=== PATIENT | female | born 1970 | race Caucasian/White ===

== ENCOUNTER 2017-03-04 05:11 | Inpatient (IN) | payer MEDICAID, SELFPAY ==
[~2017-03-04] VITALS: Ht 162.6 cm; Wt 76.6 kg
[~2017-03-04 05:11] MED LIST: NOCURR
[2017-03-04] MEDS ORDERED: LURA20TA PO (05:47)
[2017-03-04] MEDS ORDERED: RISP.5 PO (05:47)
[2017-03-04] MEDS ORDERED: HALOPERIDOL 5 MG TABLET PO PRN ×2 (08:00→08:30)
[2017-03-04] MEDS ORDERED: LORazepam 2 MG TABLET PO PRN ×2 (08:00→08:30)
[2017-03-04] MEDS ORDERED: ZOLPIDEM TARTRATE 10 MG TABLET PO PRN ×2 (08:00→08:30)
[2017-03-04 08:02] LABS: ANION GAP 8 mmol/L (8-16); CALCIUM, TOTAL 8.8 mg/dL (8.8-10.5); CARBON DIOXIDE 27 mmol/L (22-29); CHLORIDE 101 mmol/L (98-107); CREATININE 0.76 mg/dL (0.60-1.30); GLOMERULAR FILTR. RATE CALC > 60 mL/min (>60); GLUCOSE,RANDOM 107 mg/dL (70-110); POTASSIUM 4.4 mmol/L (3.5-5.1); SODIUM SERUM 136 mmol/L (136-145); UREA NITROGEN, BLOOD 18 mg/dL (7-18)
[2017-03-04 08:03] LABS: BASOPHILS # (AUTO) 0.08 K/uL (0.00-0.20); EOSINOPHILS # (AUTO) 0.15 K/uL (0.00-0.70); EOSINOPHILS % (AUTO) 1.77 % (1.0-6.0); HEMOGLOBIN 12.2 g/dL (12.0-16.0); LYMPHOCYTES # (AUTO) 1.7 K/uL (1.0-4.8); MEAN CORPUSCULAR HEMOGLOBIN 28.1 pg (26.0-34.0); MEAN CORPUSCULAR HGB CONC 33.1 G/dL (31.0-37.0); MEAN CORPUSCULAR VOLUME 85 fL (80-100); MONOCYTES # (AUTO) 0.6 K/uL (0.1-1.0); MONOCYTES % (AUTO) 7.3 % (2.0-9.0); NEUTROPHILS # (AUTO) 5.7 K/uL (1.8-7.7); NEUTROPHILS % (AUTO) 68.9 % (40.0-70.0); PLATELET COUNT (AUTO) 347 K/uL (150-450); RED BLOOD CELL COUNT(AUTO) 4.36 MIL/uL (4.00-5.20); RED CELL DISTRIBUTION WIDTH 15.6 % (11.5-14.5)
[2017-03-04 08:04] LABS: AMPHET/METH SCREEN,URINE POSITIVE (NEGATIVE); BARBITURATE SCREEN, URINE NEGATIVE (NEGATIVE); BENZODIAZEPINES SCREEN,URINE NEGATIVE (NEGATIVE); CANNABINOID SCREEN,URINE NEGATIVE (NEGATIVE); COCAINE SCREEN,URINE NEGATIVE (NEGATIVE); METHADONE SCREEN, URINE NEGATIVE (NEGATIVE); OPIATE SCREEN,URINE NEGATIVE (NEGATIVE)
[2017-03-04 08:06] LABS: PHENCYCLIDINE SCREEN,URINE NEGATIVE (NEGATIVE)
[2017-03-04 08:08] LABS: ALANINE AMINOTRANSFERASE 28 U/L (12-78); ALBUMIN 3.7 g/dL (3.4-5.0); ALKALINE PHOSPHATASE 125 U/L (46-116); ASPARTATE AMINOTRANSFERASE 22 U/L (15-37); BILIRUBIN,TOTAL 0.4 mg/dL (0.1-1.0)
[2017-03-04 12:36] VITALS: BP 142/75
[2017-03-04] MEDS: SERTRALINE HCL 50 MG TABLET PO SCH (13:17)
[2017-03-04] MEDS: RisperiDONE 1 MG TABLET PO SCH ×2 (13:17→18:04)
[2017-03-04] MEDS ORDERED: ACETAMINOPHEN 325 MG TABLET PO PRN (13:45)
[2017-03-04] MEDS ORDERED: IBUPROFEN 400 MG TABLET PO PRN (13:45)
[2017-03-05] MEDS: RisperiDONE 1 MG TABLET PO SCH ×2 (10:42→16:51)
[2017-03-05] MEDS: SERTRALINE HCL 50 MG TABLET PO SCH (10:42)
[2017-03-05 14:27] VITALS: BP 130/75
[2017-03-05] MEDS ORDERED: ACETAMINOPHEN 325 MG TABLET PO PRN (17:30)
[2017-03-06 08:15] VITALS: BP 142/88
[2017-03-06 08:32] LABS: CHOL/HDL RATIO 2.4 (3.9-5.7)
[2017-03-06] MEDS: AmLODIPine BESYLATE 2.5 MG TABLET PO SCH (08:56)
[2017-03-06 08:57] LABS: THYROID STIMULATING HORMONE 1.86 uIU/mL (0.36-3.74)
[2017-03-06] MEDS: RisperiDONE 1 MG TABLET PO SCH ×2 (08:57→17:00)
[2017-03-06] MEDS: SERTRALINE HCL 50 MG TABLET PO SCH (08:57)
[2017-03-06] MEDS: IBUPROFEN 400 MG TABLET PO PRN ×2 (10:45→19:59)
[2017-03-06 10:47] VITALS: BP 138/77
[2017-03-06 10:50] VITALS: BP 129/95
[2017-03-06 19:54] VITALS: BP 112/76
[2017-03-07] MEDS: IBUPROFEN 400 MG TABLET PO PRN (07:09)
[2017-03-07 08:09] VITALS: BP 133/90
[2017-03-07] MEDS: AmLODIPine BESYLATE 2.5 MG TABLET PO SCH (09:12)
[2017-03-07] MEDS: SERTRALINE HCL 50 MG TABLET PO SCH (09:12)
[2017-03-07] MEDS: RisperiDONE 1 MG TABLET PO SCH ×2 (09:12→16:10)
[2017-03-07] MEDS: DiphenhydrAMINE HCL 25 MG CAPSULE PO SCH ×2 (09:12→16:10)
[2017-03-07] MEDS ORDERED: AMLO2.5T PO (15:00)
[2017-03-07] MEDS ORDERED: SERT50TA12 PO (15:00)
[2017-03-07] MEDS ORDERED: DIPH25 PO (15:00)
== END 2017-03-07 17:15 | disposition home or self-care (01) | DRG 750 ==
LOC: EMS 05:13 → 3EI 08:42
PROVIDERS: ADMIT Psychiatry & Neurology Psychiatry; ATTEND Psychiatry & Neurology Child & Adolescent Psychiatry
DX: F25.1 Schizoaffective disorder, depressive type (principal); R45.851 Suicidal ideations; F29 Unspecified psychosis not due to a substance or known physiological condition; F32.9 Major depressive disorder, single episode, unspecified; I10 Essential (primary) hypertension; F41.9 Anxiety disorder, unspecified; F10.10 Alcohol abuse, uncomplicated; F15.10 Other stimulant abuse, uncomplicated; Z71.41 Alcohol abuse counseling and surveillance of alcoholic; Z79.899 Other long term (current) drug therapy; Z71.51 Drug abuse counseling and surveillance of drug abuser
CPT/HCPCS: 83036; 84443; 99285; G0480

== ENCOUNTER 2018-06-23 17:29 | Emergency (ER) | payer MEDICAID, OTHER, SELFPAY ==
[~2018-06-23] VITALS: Ht 165.1 cm; Wt 72.7 kg
[~2018-06-23 17:29] MED LIST changes: +AMLO2.5T4 PO; +DIPH25 PO; -NOCURR; +RISP.5 PO; +SERT50TA12 PO
[2018-06-23] MEDS ORDERED: LURA20TA PO (17:50)
[2018-06-23] MEDS ORDERED: VALB40CA PO (17:50)
[2018-06-23] MEDS ORDERED: BENZ0.5T44 PO (17:50)
[2018-06-23] MEDS ORDERED: LISI-661 PO (17:50)
[2018-06-23 18:11] VITALS: BP 143/91
[2018-06-23] MEDS ORDERED: HydrOXYzine PAMOATE 50 MG CAPSULE PO ONE (18:30)
[2018-06-23] MEDS ORDERED: BENZTROPINE MESYLATE 2 MG TABLET PO ONE (18:30)
[2018-06-23] MEDS ORDERED: PB/HYOSCY/ATR/SCOP/LIDO/MAALOX 55 ML BOTTLE PO ONE (19:00)
== END 2018-06-23 19:28 | disposition home or self-care (01) ==
LOC: EMS 17:31
DX: F41.9 Anxiety disorder, unspecified (principal); G25.9 Extrapyramidal and movement disorder, unspecified; F32.9 Major depressive disorder, single episode, unspecified; Z79.899 Other long term (current) drug therapy

== ENCOUNTER 2020-05-02 13:56 | Inpatient (IN) | payer MEDICAID, OTHER ==
[~2020-05-02] VITALS: Ht 165.1 cm; Wt 60.0 kg
[~2020-05-02 13:56] MED LIST changes: -AMLO2.5T4 PO; +BENZ1TAB10 PO; -DIPH25 PO; +LISI-893 PO; +LURA40TA2 PO; -RISP.5 PO; +SERT-158 PO; -SERT50TA12 PO; +TRAZ-257 PO
[2020-05-02] MEDS ORDERED: DiphenhydrAMINE HCL 25 MG/10 ML ELIXIR UDCUP PO ONE (15:00)
[2020-05-02] MEDS ORDERED: MAG HYDROX/AL HYDROX/SIMETH ES 30 ML SUSPENSION UDCUP PO ONE (15:00)
[2020-05-02 15:35] LABS: BASOPHILS % (AUTO) 0.7 % (0.0-2.0); EOSINOPHILS % (AUTO) 3.1 % (1.0-6.0); HEMATOCRIT 40.7 % (36-46); HEMOGLOBIN 13.5 g/dL (12.0-16.0); LYMPHOCYTES # (AUTO) 1.3 K/uL (1.0-4.8); LYMPHOCYTES % (AUTO) 14.5 % (22.0-44.0); MEAN CORPUSCULAR HEMOGLOBIN 30.9 pg (26.0-34.0); MEAN CORPUSCULAR HGB CONC 33.2 G/dL (31.0-37.0); MEAN CORPUSCULAR VOLUME 93 fL (80-100); MONOCYTES % (AUTO) 10.5 % (2.0-9.0); NEUTROPHILS # (AUTO) 6.5 K/uL (1.8-7.7); NEUTROPHILS % (AUTO) 71.2 % (40.0-70.0); PLATELET COUNT (AUTO) 365 K/uL (150-450); RED BLOOD CELL COUNT(AUTO) 4.38 MIL/uL (4.00-5.20); RED CELL DISTRIBUTION WIDTH 15.7 % (11.5-14.5)
[2020-05-02] MEDS ORDERED: ZOLPIDEM TARTRATE 10 MG TABLET PO PRN (15:45)
[2020-05-02] MEDS ORDERED: PROMETHAZINE HCL 25 MG TABLET PO PRN (15:45)
[2020-05-02] MEDS ORDERED: LORazepam 2 MG TABLET PO PRN (15:45)
[2020-05-02] MEDS ORDERED: TUBERCULIN, PURIFIED PROTEIN DERIVATIVE 5 TU/0.1 ML SYRINGE ID ONE (15:45)
[2020-05-02] MEDS ORDERED: OLANZapine 5 MG RAPDIS TABLET PO PRN (15:45)
[2020-05-02] MEDS ORDERED: MAGNESIUM HYDROXIDE SUSPENSION 30 ML UDCUP PO PRN (15:45)
[2020-05-02] MEDS ORDERED: LOPERAMIDE HCL 2 MG CAPSULE PO PRN (15:45)
[2020-05-02] MEDS ORDERED: ACETAMINOPHEN 325 MG TABLET PO PRN (15:45)
[2020-05-02] MEDS ORDERED: MAG HYDROX/AL HYDROX/SIMETH ES 30 ML SUSPENSION UDCUP PO PRN (15:45)
[2020-05-02] MEDS ORDERED: GuaiFENesin/D-METHORPHAN [SUGAR-FREE] 200-20MG/10 ML SYRUP UDCUP PO PRN (15:45)
[2020-05-02] MEDS ORDERED: HydrOXYzine PAMOATE 50 MG CAPSULE PO PRN (15:45)
[2020-05-02] MEDS ORDERED: LURASIDONE HCL 20 MG TABLET PO PRN (15:45)
[2020-05-02 15:56] LABS: ALANINE AMINOTRANSFERASE 37 U/L (12-78); ALBUMIN 3.6 g/dL (3.4-5.0); ALKALINE PHOSPHATASE 133 U/L (46-116); ANION GAP 15 mmol/L (8-16); ASPARTATE AMINOTRANSFERASE 30 U/L (15-37); BILIRUBIN,TOTAL 0.3 mg/dL (0.1-1.0); CALCIUM, TOTAL 9.5 mg/dL (8.8-10.5); CARBON DIOXIDE 20 mmol/L (22-29); CHLORIDE 103 mmol/L (98-107); CREATININE 0.87 mg/dL (0.60-1.30); GLOMERULAR FILTR. RATE CALC > 60 mL/min (>60); GLUCOSE,RANDOM 102 mg/dL (70-110); SODIUM SERUM 138 mmol/L (136-145); TOTAL PROTEIN, SERUM 7.7 g/dL (6.4-8.2); UREA NITROGEN, BLOOD 22 mg/dL (7-18)
[2020-05-02] MEDS ORDERED: LORazepam 2 MG TABLET PO ONE (16:00)
[2020-05-02] MEDS ORDERED: HALOPERIDOL 5 MG TABLET PO ONE (16:00)
[2020-05-02 16:03] LABS: POTASSIUM 2.7 mmol/L (3.5-5.1)
[2020-05-02] MEDS ORDERED: BACITRACIN 0.9 GM PACKET OINTMENT TP ONE (16:15)
[2020-05-02] MEDS ORDERED: POTASSIUM CHLORIDE 10% 40 MEQ/30 ML LIQUID UDCUP PO ONE ×2 (16:15→16:45)
[2020-05-02 16:58] LABS: COVID AG,FIA SOURCE NASOPHARYNGEAL
[2020-05-02] MEDS ORDERED: LURASIDONE HCL 40 MG TABLET PO SCH (17:30)
[2020-05-02 18:57] LABS: AMPHET/METH SCREEN,URINE POSITIVE (NEGATIVE); BARBITURATE SCREEN, URINE NEGATIVE (NEGATIVE); BENZODIAZEPINES SCREEN,URINE NEGATIVE (NEGATIVE); CANNABINOID SCREEN,URINE NEGATIVE (NEGATIVE); COCAINE SCREEN,URINE NEGATIVE (NEGATIVE); METHADONE SCREEN, URINE NEGATIVE (NEGATIVE); OPIATE SCREEN,URINE NEGATIVE (NEGATIVE)
[2020-05-02 18:58] LABS: PHENCYCLIDINE SCREEN,URINE NEGATIVE (NEGATIVE)
[2020-05-03 00:27] VITALS: BP 110/77
[2020-05-03] MEDS ORDERED: INFLUENZA VIRUS VACCINE QVS 2020-21 (6MO+)/PF 60 MCG/0.5 ML SYRINGE IM ONE (01:30)
[2020-05-03] MEDS ORDERED: PNEUMOCOCCAL VACCINE POLYVALENT 0.5 ML VIAL [PPSV23] IM ONE (01:30)
[2020-05-03] MEDS: SERTRALINE HCL 50 MG TABLET PO SCH (09:59)
[2020-05-03] MEDS: OMEGA-3/DHA/EPA/FISH OIL 1,000 MG CAPSULE PO SCH (09:59)
[2020-05-03] MEDS: MULTIVITAMINS WITH MINERALS, THERAPEUTIC TABLET PO SCH (09:59)
[2020-05-03] MEDS: FOLIC ACID 1 MG TABLET PO SCH (10:00)
[2020-05-03] MEDS: NALTREXONE HCL 50 MG TABLET PO SCH (10:00)
[2020-05-03] MEDS: THIAMINE 100 MG TABLET PO SCH ×3 (10:00→16:55)
[2020-05-03] MEDS ORDERED: PALIPERIDONE PALMITATE 234 MG/1.5 ML SYRINGE IM ONE (12:30)
[2020-05-03] MEDS ORDERED: PALIPERIDONE 1.5 MG ER TABLET PO PRN (12:30)
[2020-05-03 16:53] VITALS: BP 100/65
[2020-05-03] MEDS ORDERED: POTASSIUM CHLORIDE 20 MEQ ER TABLET PO ONE (20:45)
[2020-05-03] MEDS: TraZODone HCL 100 MG TABLET PO SCH ×2 (21:00→21:02)
[2020-05-03] MEDS ORDERED: PALIPERIDONE 3 MG ER TABLET PO SCH (21:00)
[2020-05-03] MEDS: MELATONIN 5 MG TABLET PO SCH ×2 (21:00→21:02)
[2020-05-03] MEDS: DIVALPROEX SODIUM 500 MG ER TABLET PO SCH (21:02)
[2020-05-04 00:19] VITALS: BP 112/73
[2020-05-04 08:21] VITALS: BP 129/68
[2020-05-04] MEDS: SERTRALINE HCL 50 MG TABLET PO SCH (09:14)
[2020-05-04] MEDS: THIAMINE 100 MG TABLET PO SCH ×2 (09:14→17:01)
[2020-05-04] MEDS: MULTIVITAMINS WITH MINERALS, THERAPEUTIC TABLET PO SCH (09:14)
[2020-05-04] MEDS: OMEGA-3/DHA/EPA/FISH OIL 1,000 MG CAPSULE PO SCH (09:14)
[2020-05-04] MEDS: FOLIC ACID 1 MG TABLET PO SCH (09:14)
[2020-05-04] MEDS: LISINOPRIL 10 MG TABLET PO SCH (09:14)
[2020-05-04] MEDS: NALTREXONE HCL 50 MG TABLET PO SCH (09:14)
[2020-05-04] MEDS ORDERED: IBUPROFEN 600 MG TABLET PO PRN (10:45)
[2020-05-04] MEDS: AMOX TR/POT CLAV 875 MG/125 MG TABLET PO SCH (17:00)
[2020-05-04 17:49] VITALS: BP 90/60
[2020-05-04] MEDS: DIVALPROEX SODIUM 500 MG ER TABLET PO SCH (20:46)
[2020-05-04] MEDS: MELATONIN 5 MG TABLET PO SCH (20:49)
[2020-05-04] MEDS: TraZODone HCL 100 MG TABLET PO SCH (21:26)
[2020-05-05 01:26] VITALS: BP 100/63
[2020-05-05] MEDS ORDERED: LURASIDONE HCL 40 MG TABLET PO SCH (07:00)
[2020-05-05 08:17] VITALS: BP 116/74
[2020-05-05] MEDS: FOLIC ACID 1 MG TABLET PO SCH (08:47)
[2020-05-05] MEDS: SERTRALINE HCL 50 MG TABLET PO SCH (08:47)
[2020-05-05] MEDS: THIAMINE 100 MG TABLET PO SCH ×2 (08:47→16:11)
[2020-05-05] MEDS: AMOX TR/POT CLAV 875 MG/125 MG TABLET PO SCH ×2 (08:47→16:11)
[2020-05-05] MEDS: LISINOPRIL 10 MG TABLET PO SCH (08:47)
[2020-05-05] MEDS: MULTIVITAMINS WITH MINERALS, THERAPEUTIC TABLET PO SCH (08:47)
[2020-05-05] MEDS: OMEGA-3/DHA/EPA/FISH OIL 1,000 MG CAPSULE PO SCH (08:47)
[2020-05-05] MEDS: NALTREXONE HCL 50 MG TABLET PO SCH (08:47)
[2020-05-05 08:48] LABS: HEMOGLOBIN A1C 5.1 % (3.8-5.6)
[2020-05-05 08:55] LABS: ALANINE AMINOTRANSFERASE 24 U/L (12-78); ALBUMIN 2.7 g/dL (3.4-5.0); ALKALINE PHOSPHATASE 100 U/L (46-116); ANION GAP 8 mmol/L (8-16); ASPARTATE AMINOTRANSFERASE 14 U/L (15-37); BILIRUBIN,TOTAL 0.2 mg/dL (0.1-1.0); CALCIUM, TOTAL 8.9 mg/dL (8.8-10.5); CARBON DIOXIDE 26 mmol/L (22-29); CHLORIDE 106 mmol/L (98-107); CREATININE 0.53 mg/dL (0.60-1.30); GLOMERULAR FILTR. RATE CALC > 60 mL/min (>60); GLUCOSE,RANDOM 91 mg/dL (70-110); SODIUM SERUM 140 mmol/L (136-145); TOTAL PROTEIN, SERUM 6.5 g/dL (6.4-8.2); UREA NITROGEN, BLOOD 18 mg/dL (7-18)
[2020-05-05 09:09] LABS: CHOL/HDL RATIO 2.2 (3.9-5.7); FREE T4 (FREE THYROXINE) 1.33 ng/dL (0.76-1.46); THYROID STIMULATING HORMONE 0.55 uIU/mL (0.36-3.74)
[2020-05-05] MEDS ORDERED: LURA40TA2 PO (14:40)
[2020-05-05] MEDS ORDERED: MELA5TAB3 PO (14:40)
[2020-05-05] MEDS ORDERED: DIVA-80 PO (14:40)
[2020-05-05] MEDS ORDERED: TRAZ-257 PO (14:40)
[2020-05-05] MEDS ORDERED: SERT-439 PO (14:40)
[2020-05-05] MEDS ORDERED: OMEG-135 PO (14:41)
[2020-05-05] MEDS ORDERED: NALT50TA PO (14:41)
[2020-05-05] MEDS ORDERED: AMOX1TAB16 PO (15:42)
[2020-05-05] MEDS ORDERED: LISI-893 PO (15:45)
[2020-05-05 16:39] VITALS: BP 97/60
[2020-05-07] MEDS ORDERED: PALIPERIDONE PALMITATE 156 MG/ML SYRINGE IM ONE (09:00)
== END 2020-05-05 17:05 | disposition home or self-care (01) | DRG 750 ==
LOC: EMS 15:06 → B3A 16:00 → UNDOADMIN 23:06
PROVIDERS: ADMIT Psychiatry & Neurology Psychiatry; ATTEND Psychiatry & Neurology Psychiatry
DX: F20.0 Paranoid schizophrenia (principal); F19.10 Other psychoactive substance abuse, uncomplicated; F10.20 Alcohol dependence, uncomplicated; I10 Essential (primary) hypertension; F17.200 Nicotine dependence, unspecified, uncomplicated; J44.9 Chronic obstructive pulmonary disease, unspecified; F15.90 Other stimulant use, unspecified, uncomplicated; Z88.8 Allergy status to other drugs, medicaments and biological substances; F12.90 Cannabis use, unspecified, uncomplicated; E87.6 Hypokalemia; Z91.19 Patient's noncompliance with other medical treatment and regimen; Z91.14 Patient's other noncompliance with medication regimen; F41.9 Anxiety disorder, unspecified; F32.9 Major depressive disorder, single episode, unspecified; Z20.822 Contact with and (suspected) exposure to COVID-19; Z28.21 Immunization not carried out because of patient refusal
CPT/HCPCS: 83036; 84132; 84439; 84443; 86592; 87426; 99285; A9575; G0480

== ENCOUNTER 2021-01-04 20:28 | Inpatient (IN) | payer MEDICAID ==
[~2021-01-04] VITALS: Ht 162.6 cm; Wt 57.8 kg
[~2021-01-04 20:28] MED LIST changes: +AMOX1TAB16 PO; -BENZ1TAB10 PO; +DIVA-80 PO; +MELA5TAB40 PO; +NALT50TA PO; +OMEG-135 PO; -SERT-158 PO; +SERT-439 PO
[2021-01-04] MEDS ORDERED: HALOPERIDOL LACTATE 5 MG/ML VIAL IM ONE (22:00)
[2021-01-04] MEDS ORDERED: LORazepam 2 MG/ML VIAL IM ONE (22:00)
[2021-01-04] MEDS ORDERED: DiphenhydrAMINE HCL 50 MG/ML VIAL IM ONE (22:00)
[2021-01-04 22:25] LABS: BASOPHILS % (AUTO) 1.1 % (0.0-2.0); EOSINOPHILS % (AUTO) 4.4 % (1.0-6.0); HEMATOCRIT 37.1 % (36-46); HEMOGLOBIN 12.2 g/dL (12.0-16.0); LYMPHOCYTES # (AUTO) 1.8 K/uL (1.0-4.8); LYMPHOCYTES % (AUTO) 23.1 % (22.0-44.0); MEAN CORPUSCULAR HEMOGLOBIN 29.9 pg (26.0-34.0); MEAN CORPUSCULAR HGB CONC 32.8 G/dL (31.0-37.0); MEAN CORPUSCULAR VOLUME 91 fL (80-100); MONOCYTES # (AUTO) 0.9 K/uL (0.1-1.0); NEUTROPHILS # (AUTO) 4.7 K/uL (1.8-7.7); NEUTROPHILS % (AUTO) 59.4 % (40.0-70.0); PLATELET COUNT (AUTO) 356 K/uL (150-450); RED BLOOD CELL COUNT(AUTO) 4.07 MIL/uL (4.00-5.20); RED CELL DISTRIBUTION WIDTH 14.1 % (11.5-14.5)
[2021-01-04 22:38] LABS: ANION GAP 8 mmol/L (8-16); CARBON DIOXIDE 26 mmol/L (22-29); CHLORIDE 108 mmol/L (98-107); CREATININE 0.62 mg/dL (0.60-1.30); GLOMERULAR FILTR. RATE CALC > 60 mL/min (>60); GLUCOSE,RANDOM 88 mg/dL (70-110); POTASSIUM 3.8 mmol/L (3.5-5.1); SODIUM SERUM 142 mmol/L (136-145); UREA NITROGEN, BLOOD 19 mg/dL (7-18)
[2021-01-04 22:43] LABS: ALANINE AMINOTRANSFERASE 19 U/L (12-78); ALBUMIN 3.5 g/dL (3.4-5.0); ALKALINE PHOSPHATASE 142 U/L (46-116); ASPARTATE AMINOTRANSFERASE 20 U/L (15-37); BILIRUBIN,TOTAL 0.4 mg/dL (0.1-1.0); TOTAL PROTEIN, SERUM 7.2 g/dL (6.4-8.2)
[2021-01-04 22:47] LABS: COVID AG,FIA SOURCE NASOPHARYNGEAL
[2021-01-05 03:29] VITALS: BP 140/78
[2021-01-05 08:39] VITALS: BP 112/70
[2021-01-05] MEDS ORDERED: PETROLATUM,WHITE 28 GM JELLY TP PRN (11:00)
[2021-01-05] MEDS ORDERED: ONDANSETRON HCL 4 MG TABLET PO PRN (11:00)
[2021-01-05] MEDS ORDERED: CloNIDine HCL 0.1 MG TABLET PO PRN (11:00)
[2021-01-05] MEDS ORDERED: LOPERAMIDE HCL 2 MG CAPSULE PO PRN (11:00)
[2021-01-05] MEDS ORDERED: BENZOCAINE/MENTHOL LOZENGE PO PRN (11:00)
[2021-01-05] MEDS ORDERED: DOCUSATE SODIUM 100 MG CAPSULE PO PRN (11:00)
[2021-01-05] MEDS ORDERED: MAGNESIUM HYDROXIDE SUSPENSION 30 ML UDCUP PO PRN (11:00)
[2021-01-05] MEDS ORDERED: BACITRACIN 28 GM OINTMENT TP PRN (11:00)
[2021-01-05] MEDS: DIVALPROEX SODIUM 500 MG DR TABLET PO SCH ×2 (11:02→16:23)
[2021-01-05] MEDS: RisperiDONE 1 MG TABLET PO SCH ×2 (11:05→16:23)
[2021-01-05] MEDS: LORazepam 2 MG TABLET PO PRN ×2 (11:07→16:23)
[2021-01-05] MEDS ORDERED: PNEUMOCOCCAL VACCINE POLYVALENT 0.5 ML VIAL [PPSV23] IM. ONE (16:30)
[2021-01-05] MEDS ORDERED: INFLUENZA VIRUS VACCINE QVS 2021-22 (6MO+)/PF 60 MCG/0.5 ML SYRINGE IM. ONE (16:30)
[2021-01-05 16:33] VITALS: BP 130/67
[2021-01-06 01:21] VITALS: BP 128/68
[2021-01-06 08:32] VITALS: BP 126/74
[2021-01-06 08:37] LABS: CHOL/HDL RATIO 1.9 (3.9-5.7)
[2021-01-06] MEDS: OMEGA-3/DHA/EPA/FISH OIL 1,000 MG CAPSULE PO SCH (08:52)
[2021-01-06] MEDS: LISINOPRIL 10 MG TABLET PO SCH (08:52)
[2021-01-06] MEDS: MULTIVITAMINS WITH MINERALS, THERAPEUTIC TABLET PO SCH (08:52)
[2021-01-06] MEDS: RisperiDONE 1 MG TABLET PO SCH ×2 (08:52→17:00)
[2021-01-06] MEDS: DIVALPROEX SODIUM 500 MG DR TABLET PO SCH ×2 (08:52→16:27)
[2021-01-06] MEDS: LORazepam 2 MG TABLET PO PRN ×2 (09:06→16:56)
[2021-01-06 16:31] VITALS: BP 98/67
[2021-01-06 16:55] VITALS: BP 114/71
[2021-01-06] MEDS: LURASIDONE HCL 80 MG TABLET PO SCH (21:15)
[2021-01-07 00:50] VITALS: BP 110/68
[2021-01-07] MEDS: ZOLPIDEM TARTRATE 10 MG TABLET PO PRN ×2 (01:11→21:33)
[2021-01-07] MEDS: MULTIVITAMINS WITH MINERALS, THERAPEUTIC TABLET PO SCH (08:44)
[2021-01-07] MEDS: LORazepam 2 MG TABLET PO PRN ×2 (08:44→16:26)
[2021-01-07] MEDS: LISINOPRIL 10 MG TABLET PO SCH (08:44)
[2021-01-07] MEDS: OMEGA-3/DHA/EPA/FISH OIL 1,000 MG CAPSULE PO SCH (08:44)
[2021-01-07] MEDS: DIVALPROEX SODIUM 500 MG DR TABLET PO SCH ×2 (08:44→17:00)
[2021-01-07] MEDS: RisperiDONE 1 MG TABLET PO SCH ×2 (08:51→17:00)
[2021-01-07 16:30] VITALS: BP 93/63
[2021-01-07] MEDS: HALOPERIDOL 5 MG TABLET PO PRN (19:55)
[2021-01-07] MEDS: ALBUTEROL SULFATE HFA 90 MCG/PUFF 8 GM INHALER IH PRN (19:57)
[2021-01-07] MEDS: LURASIDONE HCL 80 MG TABLET PO SCH (20:01)
[2021-01-08 02:22] VITALS: BP 108/69
[2021-01-08 08:22] VITALS: BP 120/76
[2021-01-08] MEDS: RisperiDONE 1 MG TABLET PO SCH ×2 (09:00→17:00)
[2021-01-08] MEDS: DIVALPROEX SODIUM 500 MG DR TABLET PO SCH ×2 (09:06→17:00)
[2021-01-08] MEDS: MULTIVITAMINS WITH MINERALS, THERAPEUTIC TABLET PO SCH (09:06)
[2021-01-08] MEDS: LORazepam 2 MG TABLET PO PRN ×2 (09:06→13:22)
[2021-01-08] MEDS: OMEGA-3/DHA/EPA/FISH OIL 1,000 MG CAPSULE PO SCH (09:06)
[2021-01-08] MEDS: LISINOPRIL 10 MG TABLET PO SCH (09:06)
[2021-01-08] MEDS: HALOPERIDOL 5 MG TABLET PO PRN (09:43)
[2021-01-08] MEDS: MAG HYDROX/AL HYDROX/SIMETH ES 30 ML SUSPENSION UDCUP PO PRN (12:30)
[2021-01-08] MEDS ORDERED: DiphenhydrAMINE HCL 50 MG/ML VIAL IM ONE (15:45)
[2021-01-08] MEDS ORDERED: LORazepam 2 MG/ML VIAL IM ONE (15:45)
[2021-01-08] MEDS ORDERED: HALOPERIDOL LACTATE 5 MG/ML VIAL IM ONE (15:45)
[2021-01-08 16:41] VITALS: BP 122/77
[2021-01-08] MEDS: LURASIDONE HCL 80 MG TABLET PO SCH (20:53)
[2021-01-09 00:31] VITALS: BP 117/67
[2021-01-09] MEDS: RisperiDONE 1 MG TABLET PO SCH ×2 (09:00→17:00)
[2021-01-09] MEDS: MULTIVITAMINS WITH MINERALS, THERAPEUTIC TABLET PO SCH (09:12)
[2021-01-09] MEDS: LISINOPRIL 10 MG TABLET PO SCH (09:12)
[2021-01-09] MEDS: OMEGA-3/DHA/EPA/FISH OIL 1,000 MG CAPSULE PO SCH (09:12)
[2021-01-09] MEDS: LORazepam 2 MG TABLET PO PRN ×2 (09:12→17:30)
[2021-01-09] MEDS: DIVALPROEX SODIUM 500 MG DR TABLET PO SCH ×2 (09:12→17:30)
[2021-01-09] MEDS: HALOPERIDOL 5 MG TABLET PO PRN (20:32)
[2021-01-09] MEDS: ZOLPIDEM TARTRATE 10 MG TABLET PO PRN (20:32)
[2021-01-09] MEDS: LURASIDONE HCL 80 MG TABLET PO SCH (20:33)
[2021-01-09] MEDS: IBUPROFEN 600 MG TABLET PO PRN (21:20)
[2021-01-10 00:37] VITALS: BP 116/78
[2021-01-10] MEDS: RisperiDONE 1 MG TABLET PO SCH ×2 (08:03→17:00)
[2021-01-10] MEDS: LISINOPRIL 10 MG TABLET PO SCH (08:03)
[2021-01-10] MEDS: OMEGA-3/DHA/EPA/FISH OIL 1,000 MG CAPSULE PO SCH (08:03)
[2021-01-10] MEDS: MULTIVITAMINS WITH MINERALS, THERAPEUTIC TABLET PO SCH (08:03)
[2021-01-10] MEDS: DIVALPROEX SODIUM 500 MG DR TABLET PO SCH ×2 (08:03→17:43)
[2021-01-10] MEDS: LORazepam 2 MG TABLET PO PRN ×3 (09:03→17:17)
[2021-01-10 10:12] VITALS: BP 130/79
[2021-01-10 16:37] VITALS: BP 104/67
[2021-01-10] MEDS: LURASIDONE HCL 80 MG TABLET PO SCH (20:19)
[2021-01-10] MEDS: ALBUTEROL SULFATE HFA 90 MCG/PUFF 8 GM INHALER IH PRN (20:20)
[2021-01-11] MEDS: ZOLPIDEM TARTRATE 10 MG TABLET PO PRN ×2 (01:28→21:10)
[2021-01-11 04:23] VITALS: BP 100/74
[2021-01-11] MEDS: HALOPERIDOL 5 MG TABLET PO PRN ×3 (05:05→14:43)
[2021-01-11] MEDS: LISINOPRIL 10 MG TABLET PO SCH (08:27)
[2021-01-11] MEDS: MULTIVITAMINS WITH MINERALS, THERAPEUTIC TABLET PO SCH (08:27)
[2021-01-11] MEDS: LORazepam 2 MG TABLET PO PRN ×2 (08:27→14:43)
[2021-01-11] MEDS: RisperiDONE 1 MG TABLET PO SCH (08:30)
[2021-01-11] MEDS: OMEGA-3/DHA/EPA/FISH OIL 1,000 MG CAPSULE PO SCH (08:30)
[2021-01-11] MEDS: DIVALPROEX SODIUM 500 MG DR TABLET PO SCH ×2 (08:30→15:53)
[2021-01-11] MEDS: IBUPROFEN 600 MG TABLET PO PRN (19:55)
[2021-01-11] MEDS: LURASIDONE HCL 80 MG TABLET PO SCH (19:55)
[2021-01-12] MEDS: ALBUTEROL SULFATE HFA 90 MCG/PUFF 8 GM INHALER IH PRN ×2 (00:46→21:35)
[2021-01-12 01:09] VITALS: BP 108/70
[2021-01-12 08:11] VITALS: BP 110/68
[2021-01-12 08:20] LABS: COVID AG,FIA SOURCE NASAL SWAB
[2021-01-12] MEDS: DIVALPROEX SODIUM 500 MG DR TABLET PO SCH ×2 (08:59→16:05)
[2021-01-12] MEDS: LISINOPRIL 10 MG TABLET PO SCH (08:59)
[2021-01-12] MEDS: MULTIVITAMINS WITH MINERALS, THERAPEUTIC TABLET PO SCH (08:59)
[2021-01-12] MEDS: LORazepam 2 MG TABLET PO PRN ×2 (08:59→16:06)
[2021-01-12] MEDS: OMEGA-3/DHA/EPA/FISH OIL 1,000 MG CAPSULE PO SCH (08:59)
[2021-01-12] MEDS: HALOPERIDOL 5 MG TABLET PO PRN ×2 (09:07→21:32)
[2021-01-12 16:22] VITALS: BP 110/64
[2021-01-12] MEDS: IBUPROFEN 600 MG TABLET PO PRN (19:40)
[2021-01-12] MEDS: LURASIDONE HCL 80 MG TABLET PO SCH (20:07)
[2021-01-12] MEDS: ZOLPIDEM TARTRATE 10 MG TABLET PO PRN (21:33)
[2021-01-12] MEDS: MAG HYDROX/AL HYDROX/SIMETH ES 30 ML SUSPENSION UDCUP PO PRN (23:08)
[2021-01-13 04:15] VITALS: BP 112/71
[2021-01-13] MEDS: LORazepam 2 MG TABLET PO PRN ×4 (04:18→22:57)
[2021-01-13] MEDS: DIVALPROEX SODIUM 500 MG DR TABLET PO SCH ×2 (08:08→16:06)
[2021-01-13] MEDS: MULTIVITAMINS WITH MINERALS, THERAPEUTIC TABLET PO SCH (08:08)
[2021-01-13] MEDS: OMEGA-3/DHA/EPA/FISH OIL 1,000 MG CAPSULE PO SCH (08:08)
[2021-01-13] MEDS: LISINOPRIL 10 MG TABLET PO SCH (08:08)
[2021-01-13 08:11] LABS: COVID AG,FIA SOURCE NASAL SWAB
[2021-01-13 08:37] VITALS: BP 120/68
[2021-01-13] MEDS: HALOPERIDOL 5 MG TABLET PO PRN ×3 (09:46→19:46)
[2021-01-13 16:27] VITALS: BP 109/63
[2021-01-13] MEDS: MAG HYDROX/AL HYDROX/SIMETH ES 30 ML SUSPENSION UDCUP PO PRN (16:48)
[2021-01-13 19:46] VITALS: BP 110/65
[2021-01-13] MEDS: IBUPROFEN 600 MG TABLET PO PRN (19:46)
[2021-01-13] MEDS: LURASIDONE HCL 80 MG TABLET PO SCH (20:17)
[2021-01-13] MEDS: ZOLPIDEM TARTRATE 10 MG TABLET PO PRN (20:39)
[2021-01-13] MEDS: ALBUTEROL SULFATE HFA 90 MCG/PUFF 8 GM INHALER IH PRN (22:57)
[2021-01-14 01:13] VITALS: BP 114/68
[2021-01-14] MEDS: MAG HYDROX/AL HYDROX/SIMETH ES 30 ML SUSPENSION UDCUP PO PRN (01:53)
[2021-01-14] MEDS: HALOPERIDOL 5 MG TABLET PO PRN ×4 (01:53→20:23)
[2021-01-14] MEDS: IBUPROFEN 600 MG TABLET PO PRN ×2 (01:53→19:39)
[2021-01-14 08:23] VITALS: BP 110/60
[2021-01-14] MEDS: MULTIVITAMINS WITH MINERALS, THERAPEUTIC TABLET PO SCH (08:40)
[2021-01-14] MEDS: LISINOPRIL 10 MG TABLET PO SCH (08:40)
[2021-01-14] MEDS: DIVALPROEX SODIUM 500 MG DR TABLET PO SCH ×2 (08:40→16:18)
[2021-01-14] MEDS: OMEGA-3/DHA/EPA/FISH OIL 1,000 MG CAPSULE PO SCH (08:40)
[2021-01-14] MEDS: LORazepam 2 MG TABLET PO PRN ×3 (10:50→21:53)
[2021-01-14 16:23] VITALS: BP 114/65
[2021-01-14 19:39] VITALS: BP 109/62
[2021-01-14] MEDS: ALBUTEROL SULFATE HFA 90 MCG/PUFF 8 GM INHALER IH PRN (19:39)
[2021-01-14] MEDS: ZOLPIDEM TARTRATE 10 MG TABLET PO PRN (20:23)
[2021-01-14] MEDS: LURASIDONE HCL 80 MG TABLET PO SCH (20:23)
[2021-01-14] MEDS: ACETAMINOPHEN 325 MG TABLET PO PRN (23:52)
[2021-01-15] MEDS: HALOPERIDOL 5 MG TABLET PO PRN ×2 (00:23→20:03)
[2021-01-15 04:39] VITALS: BP 111/69
[2021-01-15] MEDS: LORazepam 2 MG TABLET PO PRN ×2 (04:41→10:10)
[2021-01-15 07:52] LABS: FREE T4 (FREE THYROXINE) 0.82 ng/dL (0.76-1.46); THYROID STIMULATING HORMONE 2.51 uIU/mL (0.36-3.74)
[2021-01-15] MEDS: LISINOPRIL 10 MG TABLET PO SCH (08:02)
[2021-01-15] MEDS: MULTIVITAMINS WITH MINERALS, THERAPEUTIC TABLET PO SCH (08:02)
[2021-01-15] MEDS: OMEGA-3/DHA/EPA/FISH OIL 1,000 MG CAPSULE PO SCH (08:02)
[2021-01-15] MEDS: DIVALPROEX SODIUM 500 MG DR TABLET PO SCH ×2 (08:02→16:16)
[2021-01-15 09:00] VITALS: BP 112/56
[2021-01-15] MEDS: MAG HYDROX/AL HYDROX/SIMETH ES 30 ML SUSPENSION UDCUP PO PRN (10:34)
[2021-01-15] MEDS: IBUPROFEN 600 MG TABLET PO PRN ×2 (14:30→20:48)
[2021-01-15 15:07] VITALS: BP_SYST 103; BP_SYST 108; BP_DIAS 64; BP_DIAS 87
[2021-01-15 16:40] VITALS: BP 108/87
[2021-01-15] MEDS: LURASIDONE HCL 80 MG TABLET PO SCH (20:02)
[2021-01-15] MEDS: ZOLPIDEM TARTRATE 10 MG TABLET PO PRN (20:42)
[2021-01-15 20:48] VITALS: BP 111/68
[2021-01-16] MEDS: LORazepam 2 MG TABLET PO PRN ×4 (02:38→22:59)
[2021-01-16] MEDS: MAG HYDROX/AL HYDROX/SIMETH ES 30 ML SUSPENSION UDCUP PO PRN ×2 (03:11→20:55)
[2021-01-16 03:14] VITALS: BP 114/75
[2021-01-16] MEDS: IBUPROFEN 600 MG TABLET PO PRN ×3 (03:21→20:50)
[2021-01-16] MEDS: DIVALPROEX SODIUM 500 MG DR TABLET PO SCH ×2 (08:34→16:41)
[2021-01-16] MEDS: MULTIVITAMINS WITH MINERALS, THERAPEUTIC TABLET PO SCH (08:35)
[2021-01-16] MEDS: OMEGA-3/DHA/EPA/FISH OIL 1,000 MG CAPSULE PO SCH (08:35)
[2021-01-16] MEDS: LISINOPRIL 10 MG TABLET PO SCH (08:35)
[2021-01-16 08:51] VITALS: BP 124/79
[2021-01-16] MEDS: HALOPERIDOL 5 MG TABLET PO PRN (11:02)
[2021-01-16 16:22] VITALS: BP 101/58
[2021-01-16] MEDS: LURASIDONE HCL 80 MG TABLET PO SCH (20:11)
[2021-01-16] MEDS: ZOLPIDEM TARTRATE 10 MG TABLET PO PRN (21:56)
[2021-01-16] MEDS: OMEPRAZOLE 20 MG CAPSULE PO PRN (22:31)
[2021-01-16] MEDS: ALBUTEROL SULFATE HFA 90 MCG/PUFF 8 GM INHALER IH PRN (22:55)
[2021-01-17 01:46] VITALS: BP 117/73
[2021-01-17] MEDS: HALOPERIDOL 5 MG TABLET PO PRN ×2 (03:19→10:03)
[2021-01-17] MEDS: LORazepam 2 MG TABLET PO PRN ×4 (03:19→19:17)
[2021-01-17] MEDS: OMEGA-3/DHA/EPA/FISH OIL 1,000 MG CAPSULE PO SCH (08:35)
[2021-01-17] MEDS: DIVALPROEX SODIUM 500 MG DR TABLET PO SCH ×2 (08:35→16:30)
[2021-01-17] MEDS: MULTIVITAMINS WITH MINERALS, THERAPEUTIC TABLET PO SCH (08:35)
[2021-01-17] MEDS: LISINOPRIL 10 MG TABLET PO SCH (08:35)
[2021-01-17 08:44] VITALS: BP 115/72
[2021-01-17] MEDS: OMEPRAZOLE 20 MG CAPSULE PO PRN (10:03)
[2021-01-17] MEDS: IBUPROFEN 600 MG TABLET PO PRN ×2 (10:03→19:17)
[2021-01-17 16:16] VITALS: BP 114/69
[2021-01-17] MEDS: MAG HYDROX/AL HYDROX/SIMETH ES 30 ML SUSPENSION UDCUP PO PRN (17:29)
[2021-01-17] MEDS: ALBUTEROL SULFATE HFA 90 MCG/PUFF 8 GM INHALER IH PRN (19:17)
[2021-01-17 19:18] VITALS: BP 119/70
[2021-01-17] MEDS: LURASIDONE HCL 80 MG TABLET PO SCH (20:34)
[2021-01-17] MEDS: ZOLPIDEM TARTRATE 10 MG TABLET PO PRN (21:37)
[2021-01-18 00:55] VITALS: BP 114/76
[2021-01-18] MEDS: LORazepam 2 MG TABLET PO PRN ×4 (03:11→20:00)
[2021-01-18] MEDS: HALOPERIDOL 5 MG TABLET PO PRN ×4 (03:11→20:00)
[2021-01-18] MEDS: MULTIVITAMINS WITH MINERALS, THERAPEUTIC TABLET PO SCH (08:31)
[2021-01-18] MEDS: OMEGA-3/DHA/EPA/FISH OIL 1,000 MG CAPSULE PO SCH (08:32)
[2021-01-18] MEDS: DIVALPROEX SODIUM 500 MG DR TABLET PO SCH ×2 (08:33→16:40)
[2021-01-18] MEDS: LISINOPRIL 10 MG TABLET PO SCH (08:33)
[2021-01-18] MEDS: OMEPRAZOLE 20 MG CAPSULE PO PRN (09:18)
[2021-01-18 16:19] VITALS: BP 107/66
[2021-01-18] MEDS: ZOLPIDEM TARTRATE 10 MG TABLET PO PRN (20:00)
[2021-01-18] MEDS: LURASIDONE HCL 80 MG TABLET PO SCH (20:00)
[2021-01-19 00:34] VITALS: BP 112/72
[2021-01-19] MEDS: HALOPERIDOL 5 MG TABLET PO PRN ×3 (01:55→13:49)
[2021-01-19] MEDS: LORazepam 2 MG TABLET PO PRN ×4 (01:56→17:37)
[2021-01-19] MEDS: DIVALPROEX SODIUM 500 MG DR TABLET PO SCH ×2 (08:42→20:02)
[2021-01-19] MEDS: OMEGA-3/DHA/EPA/FISH OIL 1,000 MG CAPSULE PO SCH (08:42)
[2021-01-19] MEDS: MULTIVITAMINS WITH MINERALS, THERAPEUTIC TABLET PO SCH (08:42)
[2021-01-19] MEDS: LISINOPRIL 10 MG TABLET PO SCH (08:42)
[2021-01-19] MEDS: OMEPRAZOLE 20 MG CAPSULE PO PRN (10:58)
[2021-01-19 16:35] VITALS: BP 103/67
[2021-01-19] MEDS: ACETAMINOPHEN 325 MG TABLET PO PRN (18:54)
[2021-01-19] MEDS: MAG HYDROX/AL HYDROX/SIMETH ES 30 ML SUSPENSION UDCUP PO PRN (18:55)
[2021-01-19] MEDS: LURASIDONE HCL 60 MG TABLET PO SCH (20:01)
[2021-01-19] MEDS: ZOLPIDEM TARTRATE 10 MG TABLET PO PRN (20:02)
[2021-01-20 01:05] VITALS: BP 127/77
[2021-01-20] MEDS: LORazepam 2 MG TABLET PO PRN ×3 (02:05→17:33)
[2021-01-20] MEDS: HALOPERIDOL 5 MG TABLET PO PRN ×3 (02:06→17:34)
[2021-01-20 08:39] VITALS: BP 119/84
[2021-01-20] MEDS: LISINOPRIL 10 MG TABLET PO SCH (08:40)
[2021-01-20] MEDS: DIVALPROEX SODIUM 500 MG DR TABLET PO SCH ×2 (08:40→20:28)
[2021-01-20] MEDS: MULTIVITAMINS WITH MINERALS, THERAPEUTIC TABLET PO SCH (08:40)
[2021-01-20] MEDS ORDERED: ChlorproMAZINE HCL 50 MG/2 ML AMP ONE (09:00)
[2021-01-20] MEDS ORDERED: LORazepam 2 MG/ML VIAL ONE (09:00)
[2021-01-20] MEDS ORDERED: DiphenhydrAMINE HCL 50 MG/ML VIAL ONE (09:01)
[2021-01-20] MEDS ORDERED: LORazepam 2 MG/ML VIAL IM ONE (09:15)
[2021-01-20] MEDS ORDERED: DiphenhydrAMINE HCL 50 MG/ML VIAL IM ONE (09:15)
[2021-01-20] MEDS ORDERED: ChlorproMAZINE HCL 50 MG/2 ML AMP IM ONE (09:15)
[2021-01-20] MEDS: OMEGA-3/DHA/EPA/FISH OIL 1,000 MG CAPSULE PO SCH (09:45)
[2021-01-20 16:18] VITALS: BP 107/67
[2021-01-20] MEDS: LURASIDONE HCL 60 MG TABLET PO SCH (20:27)
[2021-01-20] MEDS: ZOLPIDEM TARTRATE 10 MG TABLET PO PRN (20:28)
[2021-01-21 01:55] VITALS: BP 101/74
[2021-01-21 08:32] VITALS: BP 112/72
[2021-01-21] MEDS: DIVALPROEX SODIUM 500 MG DR TABLET PO SCH ×2 (08:44→20:02)
[2021-01-21] MEDS: OMEGA-3/DHA/EPA/FISH OIL 1,000 MG CAPSULE PO SCH (08:44)
[2021-01-21] MEDS: LISINOPRIL 10 MG TABLET PO SCH (08:44)
[2021-01-21] MEDS: MULTIVITAMINS WITH MINERALS, THERAPEUTIC TABLET PO SCH (08:44)
[2021-01-21] MEDS: LORazepam 2 MG TABLET PO PRN ×2 (09:36→13:45)
[2021-01-21] MEDS: HALOPERIDOL 5 MG TABLET PO PRN (10:15)
[2021-01-21 17:16] VITALS: BP 100/65
[2021-01-21] MEDS: LURASIDONE HCL 60 MG TABLET PO SCH (20:02)
[2021-01-21] MEDS: ZOLPIDEM TARTRATE 10 MG TABLET PO PRN (20:57)
[2021-01-21 21:30] LABS: GLUCOMETER DEV NAME(LOC) POC.BV
[2021-01-22 00:59] VITALS: BP 110/75
[2021-01-22] MEDS: MAG HYDROX/AL HYDROX/SIMETH ES 30 ML SUSPENSION UDCUP PO PRN ×2 (06:58→21:36)
[2021-01-22] MEDS: OMEGA-3/DHA/EPA/FISH OIL 1,000 MG CAPSULE PO SCH (08:08)
[2021-01-22] MEDS: MULTIVITAMINS WITH MINERALS, THERAPEUTIC TABLET PO SCH (08:08)
[2021-01-22] MEDS: DIVALPROEX SODIUM 500 MG DR TABLET PO SCH ×2 (08:08→20:03)
[2021-01-22] MEDS: LISINOPRIL 10 MG TABLET PO SCH (08:09)
[2021-01-22 08:34] VITALS: BP 112/66
[2021-01-22] MEDS: LORazepam 2 MG TABLET PO PRN ×2 (08:48→13:19)
[2021-01-22] MEDS: HALOPERIDOL 5 MG TABLET PO PRN ×2 (08:58→13:19)
[2021-01-22] MEDS: OMEPRAZOLE 20 MG CAPSULE PO PRN (10:15)
[2021-01-22 16:50] VITALS: BP 103/65
[2021-01-22] MEDS: IBUPROFEN 600 MG TABLET PO PRN (17:58)
[2021-01-22] MEDS: ALBUTEROL SULFATE HFA 90 MCG/PUFF 8 GM INHALER IH PRN (18:18)
[2021-01-22] MEDS: LURASIDONE HCL 60 MG TABLET PO SCH (20:03)
[2021-01-22] MEDS: ZOLPIDEM TARTRATE 10 MG TABLET PO PRN (20:50)
[2021-01-23 01:34] VITALS: BP 114/63
[2021-01-23] MEDS: LORazepam 2 MG TABLET PO PRN ×4 (02:00→18:09)
[2021-01-23] MEDS: HALOPERIDOL 5 MG TABLET PO PRN ×4 (02:00→18:09)
[2021-01-23] MEDS: ACETAMINOPHEN 325 MG TABLET PO PRN (02:35)
[2021-01-23] MEDS: MAG HYDROX/AL HYDROX/SIMETH ES 30 ML SUSPENSION UDCUP PO PRN ×2 (03:40→09:58)
[2021-01-23] MEDS: OMEPRAZOLE 20 MG CAPSULE PO PRN (05:15)
[2021-01-23 08:39] VITALS: BP 112/66
[2021-01-23] MEDS: OMEGA-3/DHA/EPA/FISH OIL 1,000 MG CAPSULE PO SCH (08:39)
[2021-01-23] MEDS: LISINOPRIL 10 MG TABLET PO SCH (08:39)
[2021-01-23] MEDS: MULTIVITAMINS WITH MINERALS, THERAPEUTIC TABLET PO SCH (08:39)
[2021-01-23] MEDS: DIVALPROEX SODIUM 500 MG DR TABLET PO SCH ×2 (08:40→20:14)
[2021-01-23 16:26] VITALS: BP 122/68
[2021-01-23] MEDS: LURASIDONE HCL 60 MG TABLET PO SCH (20:14)
[2021-01-23] MEDS: ZOLPIDEM TARTRATE 10 MG TABLET PO PRN (20:15)
[2021-01-24] MEDS: LORazepam 2 MG TABLET PO PRN (01:56)
[2021-01-24 06:12] VITALS: BP 118/70
[2021-01-24 08:13] VITALS: BP 124/67
[2021-01-24] MEDS: DIVALPROEX SODIUM 500 MG DR TABLET PO SCH ×2 (09:00→20:15)
[2021-01-24] MEDS: OMEGA-3/DHA/EPA/FISH OIL 1,000 MG CAPSULE PO SCH (09:00)
[2021-01-24] MEDS: LISINOPRIL 10 MG TABLET PO SCH (09:00)
[2021-01-24] MEDS: MULTIVITAMINS WITH MINERALS, THERAPEUTIC TABLET PO SCH (09:00)
[2021-01-24] MEDS ORDERED: DiphenhydrAMINE HCL 50 MG/ML VIAL IM ONE (09:30)
[2021-01-24] MEDS ORDERED: LORazepam 2 MG/ML VIAL IM ONE (09:30)
[2021-01-24] MEDS ORDERED: HALOPERIDOL LACTATE 5 MG/ML VIAL IM ONE (09:30)
[2021-01-24] MEDS ORDERED: DIVA-112 PO ×2 (15:34→22:40)
[2021-01-24 16:39] VITALS: BP 119/64
[2021-01-24] MEDS: OMEPRAZOLE 20 MG CAPSULE PO PRN (16:44)
[2021-01-24] MEDS: LURASIDONE HCL 60 MG TABLET PO SCH (20:15)
[2021-01-24] MEDS: ZOLPIDEM TARTRATE 10 MG TABLET PO PRN (20:54)
[2021-01-24] MEDS: MAG HYDROX/AL HYDROX/SIMETH ES 30 ML SUSPENSION UDCUP PO PRN (21:00)
[2021-01-24] MEDS ORDERED: LURA60TA PO (22:38)
[2021-01-24] MEDS: ACETAMINOPHEN 325 MG TABLET PO PRN (23:16)
[2021-01-25 00:46] VITALS: BP 122/76
[2021-01-25] MEDS: LORazepam 2 MG TABLET PO PRN (00:47)
[2021-01-25 02:00] VITALS: BP 118/68
[2021-01-25] MEDS: IBUPROFEN 600 MG TABLET PO PRN (02:05)
[2021-01-25] MEDS: ALBUTEROL SULFATE HFA 90 MCG/PUFF 8 GM INHALER IH PRN (02:05)
[2021-01-25] MEDS: DIVALPROEX SODIUM 500 MG DR TABLET PO SCH (07:54)
[2021-01-25] MEDS: LISINOPRIL 10 MG TABLET PO SCH (07:54)
[2021-01-25] MEDS: MULTIVITAMINS WITH MINERALS, THERAPEUTIC TABLET PO SCH (07:54)
[2021-01-25] MEDS: OMEGA-3/DHA/EPA/FISH OIL 1,000 MG CAPSULE PO SCH (07:55)
== END 2021-01-25 08:30 | disposition home or self-care (01) | DRG 750 ==
LOC: EMS 20:28 → B3A 23:00
PROVIDERS: ADMIT Psychiatry & Neurology Psychiatry; ATTEND Psychiatry & Neurology Psychiatry
DX: F20.0 Paranoid schizophrenia (principal); F19.10 Other psychoactive substance abuse, uncomplicated; F41.9 Anxiety disorder, unspecified; G47.00 Insomnia, unspecified; I10 Essential (primary) hypertension; Z20.822 Contact with and (suspected) exposure to COVID-19; J45.909 Unspecified asthma, uncomplicated; K59.00 Constipation, unspecified; Z79.899 Other long term (current) drug therapy; Z72.0 Tobacco use; Z71.6 Tobacco abuse counseling
CPT/HCPCS: 80053; 80061; 80164; 84439; 84443; 85025; 99285; G0480; J1200; J1630; J2060; J3230; J3535; Q9967; 36415-L1; 36415-TC; Z7502; Z7610

== ENCOUNTER 2021-01-15 17:02 | Emergency (ER) | payer MEDICAID, OTHER ==
[~2021-01-15] VITALS: Ht 165.1 cm; Wt 54.5 kg
[~2021-01-15 17:02] MED LIST changes: -AMOX1TAB16 PO
[2021-01-15 17:46] VITALS: BP 97/65
[2021-01-15] MEDS ORDERED: IBUPROFEN 600 MG TABLET PO ONE (18:15)
== END 2021-01-15 21:06 | disposition home or self-care (01) ==
LOC: EMS 17:04
DX: S80.01XA Contusion of right knee, initial encounter (principal); F41.9 Anxiety disorder, unspecified; J45.909 Unspecified asthma, uncomplicated; F32.9 Major depressive disorder, single episode, unspecified; I10 Essential (primary) hypertension; Z79.899 Other long term (current) drug therapy; W19.XXXA Unspecified fall, initial encounter; Y93.89 Activity, other specified; Y92.89 Other specified places as the place of occurrence of the external cause; Y99.8 Other external cause status
CPT/HCPCS: 99283; Z7502

== ENCOUNTER 2023-06-23 16:25 | Inpatient (IN) | payer MEDICAID, OTHER ==
[~2023-06-23] VITALS: Ht 165.1 cm; Wt 157.0 kg
[~2023-06-23 16:25] MED LIST changes: +DIVA-112 PO; -DIVA-80 PO; -LURA40TA2 PO; +LURA60TA PO; -MELA5TAB40 PO; -NALT50TA PO; -OMEG-135 PO; -SERT-439 PO; -TRAZ-257 PO
[2023-06-23 20:48] LABS: BASOPHILS % (AUTO) 0.8 % (0.0-2.0); EOSINOPHILS % (AUTO) 2.4 % (1.0-6.0); HEMATOCRIT 33.8 % (36-46); HEMOGLOBIN 11.2 g/dL (12.0-16.0); LYMPHOCYTES # (AUTO) 2.3 K/uL (1.0-4.8); LYMPHOCYTES % (AUTO) 22.5 % (22.0-44.0); MEAN CORPUSCULAR HEMOGLOBIN 30.7 pg (26.0-34.0); MEAN CORPUSCULAR HGB CONC 33.2 G/dL (31.0-37.0); MEAN CORPUSCULAR VOLUME 93 fL (80-100); MONOCYTES # (AUTO) 0.6 K/uL (0.1-1.0); MONOCYTES % (AUTO) 6.5 % (2.0-9.0); NEUTROPHILS # (AUTO) 6.8 K/uL (1.8-7.7); NEUTROPHILS % (AUTO) 67.8 % (40.0-70.0); PLATELET COUNT (AUTO) 500 K/uL (150-450); RED BLOOD CELL COUNT(AUTO) 3.66 MIL/uL (4.00-5.20); RED CELL DISTRIBUTION WIDTH 16.7 % (11.5-14.5)
[2023-06-23 20:57] LABS: ANION GAP 9 mmol/L (8-16); CALCIUM, TOTAL 7.8 mg/dL (8.8-10.5); CARBON DIOXIDE 28 mmol/L (22-29); CHLORIDE 108 mmol/L (98-107); CREATININE 0.63 mg/dL (0.60-1.30); GLOMERULAR FILTR. RATE CALC > 60 mL/min (>60); GLUCOSE,RANDOM 113 mg/dL (70-110); POTASSIUM 3.8 mmol/L (3.5-5.1); SODIUM SERUM 145 mmol/L (136-145); UREA NITROGEN, BLOOD 7 mg/dL (7-18)
[2023-06-23 21:02] LABS: PH,URINE DRUG SCREEN 5.5 (5.0-8.0)
[2023-06-23 21:03] LABS: ALANINE AMINOTRANSFERASE 21 U/L (12-78); ALBUMIN 2.6 g/dL (3.4-5.0); ALKALINE PHOSPHATASE 110 U/L (46-116); ASPARTATE AMINOTRANSFERASE 20 U/L (15-37); BILIRUBIN,TOTAL 0.1 mg/dL (0.1-1.0); TOTAL PROTEIN, SERUM 6.5 g/dL (6.4-8.2)
[2023-06-23 21:06] LABS: ALCOHOL, BLOOD (SERUM) 164 mg/dL (0-10)
[2023-06-23 21:07] LABS: ALCOHOL, URINE DRUG SCREEN POSITIVE (NEGATIVE); AMPHET/METH SCREEN,URINE NEGATIVE (NEGATIVE); BARBITURATE SCREEN, URINE NEGATIVE (NEGATIVE); BENZODIAZEPINES SCREEN,URINE NEGATIVE (NEGATIVE); CANNABINOID SCREEN,URINE NEGATIVE (NEGATIVE); COCAINE SCREEN,URINE NEGATIVE (NEGATIVE); METHADONE SCREEN, URINE NEGATIVE (NEGATIVE); OPIATE SCREEN,URINE NEGATIVE (NEGATIVE); PHENCYCLIDINE SCREEN,URINE NEGATIVE (NEGATIVE)
[2023-06-23 21:52] LABS: COVID AG,FIA SOURCE NASAL SWAB
[2023-06-23 22:10] LABS: SARS-COV2 (COVID) ANTIGEN,FIA Negative (Negative)
[2023-06-24] MEDS: IBUPROFEN 600 MG TABLET PO ONE (03:20)
[2023-06-24] MEDS: ZOLPIDEM TARTRATE 10 MG TABLET PO PRN (03:20)
[2023-06-24] MEDS: HALOPERIDOL 5 MG TABLET PO PRN (03:20)
[2023-06-24] MEDS: LORazepam 2 MG TABLET PO PRN (09:21)
[2023-06-24 12:46] VITALS: BP 148/75; PULSE 94; RESP 14; TEMP 96.5; O2SAT 96
[2023-06-24] MEDS: LISINOPRIL 10 MG TABLET PO SCH (14:09)
[2023-06-24] MEDS ORDERED: PNEUMOCOCCAL VACCINE POLYVALENT 0.5 ML SYRINGE [PPSV23] IM. ONE (17:15)
[2023-06-24] MEDS ORDERED: BENZOCAINE/MENTHOL LOZENGE PO PRN (18:00)
[2023-06-24] MEDS ORDERED: OMEPRAZOLE 20 MG CAPSULE PO PRN (18:00)
[2023-06-24] MEDS ORDERED: MAGNESIUM HYDROXIDE SUSPENSION 30 ML UDCUP PO PRN (18:00)
[2023-06-24] MEDS ORDERED: DOCUSATE SODIUM 100 MG CAPSULE PO PRN (18:00)
[2023-06-24] MEDS ORDERED: CloNIDine HCL 0.1 MG TABLET PO PRN (18:00)
[2023-06-24] MEDS ORDERED: MAG HYDROX/ALUMINUM HYD/SIMETH ES 30 ML SUSPENSION UDCUP PO PRN (18:00)
[2023-06-24] MEDS ORDERED: PETROLATUM,WHITE 28 GM JELLY TP PRN (18:00)
[2023-06-24] MEDS ORDERED: ONDANSETRON HCL 4 MG TABLET PO PRN (18:00)
[2023-06-24] MEDS ORDERED: LOPERAMIDE HCL 2 MG CAPSULE PO PRN (18:00)
[2023-06-24] MEDS ORDERED: BACITRACIN 28 GM OINTMENT TP PRN (18:00)
[2023-06-24] MEDS ORDERED: ACETAMINOPHEN 325 MG TABLET PO PRN (18:00)
[2023-06-24 20:21] VITALS: BP 152/106; PULSE 90; RESP 20; TEMP 96.4; O2SAT 96
[2023-06-24] MEDS: IBUPROFEN 600 MG TABLET PO PRN (22:13)
[2023-06-25 10:47] LABS: HEMOGLOBIN A1C 5.3 % (3.8-5.6)
[2023-06-25 11:14] LABS: CHOL/HDL RATIO 3.5 (3.9-5.7); THYROID STIMULATING HORMONE 1.75 uIU/mL (0.36-3.74)
[2023-06-25 11:19] VITALS: BP 126/68; PULSE 98; RESP 18; TEMP 96.7; O2SAT 96
[2023-06-25] MEDS: ALBUTEROL SULFATE HFA 90 MCG/PUFF 8 GM INHALER IH PRN (18:15)
[2023-06-25 21:27] VITALS: BP 134/83; PULSE 63; RESP 16; TEMP 96; O2SAT 88
[2023-06-26 05:15] VITALS: BP 110/96; PULSE 87; RESP 18; TEMP 96.2; O2SAT 96
[2023-06-26 08:19] VITALS: BP 118/74; PULSE 78; RESP 16; TEMP 97.9; O2SAT 98
== END 2023-06-26 18:25 | disposition home or self-care (01) | DRG 754 ==
LOC: EMS 16:27 → B3A 06-24 06:38
PROVIDERS: ADMIT Psychiatry & Neurology Psychiatry; ATTEND Psychiatry & Neurology Psychiatry
DX: F32.9 Major depressive disorder, single episode, unspecified (principal); R45.850 Homicidal ideations; F41.9 Anxiety disorder, unspecified; G47.00 Insomnia, unspecified; I10 Essential (primary) hypertension; Z20.822 Contact with and (suspected) exposure to COVID-19; J45.909 Unspecified asthma, uncomplicated; K59.00 Constipation, unspecified
CPT/HCPCS: 80053; 80061; 80307; 83036; 84443; 85025; 99285; G0480; J3535

== ENCOUNTER 2023-09-06 10:38 | Inpatient (IN) | payer MEDICAID, OTHER ==
[~2023-09-06] VITALS: Ht 165.1 cm; Wt 159.0 kg
[~2023-09-06 10:38] MED LIST changes: -DIVA-112 PO; -LURA60TA PO
[2023-09-06 11:08] LABS: COVID AG,FIA SOURCE NPH
[2023-09-06 11:34] LABS: SARS-COV2 (COVID) ANTIGEN,FIA Negative (Negative)
[2023-09-06 12:09] LABS: APPEARANCE,URINE CLEAR (CLEAR); BILIRUBIN,URINE NEGATIVE (NEGATIVE); COLOR,URINE COLORLESS (YELLOW); GLUCOSE, URINE (UA) NEGATIVE (NEGATIVE); KETONES,URINE NEGATIVE (NEGATIVE); LEUKOCYTE ESTERASE ,URINE TRACE (NEGATIVE); NITRATE,URINE NEGATIVE (NEGATIVE); OCCULT BLOOD,URINE NEGATIVE (NEGATIVE); PROTEIN,URINE NEGATIVE (NEGATIVE); SPECIFIC GRAVITIY, URINE 1.005 (1.003-1.030); UROBILINOGEN,URINE <=1.0 mg/dL (<=1.0)
[2023-09-06 12:13] LABS: BACTERIA,URINE None Seen /HPF (None Seen); RBC,URINE None Seen /HPF (0-2); SQUAMOUS EPITHELIAL CELL,UR Rare /LPF (None Seen); WBC,URINE 0-2 /HPF (0-5)
[2023-09-06 12:16] LABS: ALCOHOL, URINE DRUG SCREEN POSITIVE (NEGATIVE); AMPHET/METH SCREEN,URINE NEGATIVE (NEGATIVE); BARBITURATE SCREEN, URINE NEGATIVE (NEGATIVE); BENZODIAZEPINES SCREEN,URINE NEGATIVE (NEGATIVE); CANNABINOID SCREEN,URINE NEGATIVE (NEGATIVE); COCAINE SCREEN,URINE NEGATIVE (NEGATIVE); METHADONE SCREEN, URINE NEGATIVE (NEGATIVE); OPIATE SCREEN,URINE NEGATIVE (NEGATIVE); PHENCYCLIDINE SCREEN,URINE NEGATIVE (NEGATIVE)
[2023-09-06 12:36] LABS: BASOPHILS % (AUTO) 1.1 % (0.0-2.0); EOSINOPHILS % (AUTO) 0.7 % (1.0-6.0); HEMATOCRIT 31.8 % (36-46); HEMOGLOBIN 10.4 g/dL (12.0-16.0); LYMPHOCYTES # (AUTO) 1.2 K/uL (1.0-4.8); LYMPHOCYTES % (AUTO) 17.2 % (22.0-44.0); MEAN CORPUSCULAR HEMOGLOBIN 28.6 pg (26.0-34.0); MEAN CORPUSCULAR HGB CONC 32.7 G/dL (31.0-37.0); MEAN CORPUSCULAR VOLUME 87 fL (80-100); MONOCYTES # (AUTO) 0.4 K/uL (0.1-1.0); MONOCYTES % (AUTO) 5.2 % (2.0-9.0); NEUTROPHILS # (AUTO) 5.4 K/uL (1.8-7.7); NEUTROPHILS % (AUTO) 75.8 % (40.0-70.0); PLATELET COUNT (AUTO) 471 K/uL (150-450); RED BLOOD CELL COUNT(AUTO) 3.64 MIL/uL (4.00-5.20); RED CELL DISTRIBUTION WIDTH 17.8 % (11.5-14.5); WHITE BLOOD COUNT (AUTO) 7.1 K/uL (4.5-11.0)
[2023-09-06 12:45] LABS: ANION GAP 8 mmol/L (8-16); CALCIUM, TOTAL 8.1 mg/dL (8.8-10.5); CARBON DIOXIDE 27 mmol/L (22-29); CHLORIDE 107 mmol/L (98-107); CREATININE 0.65 mg/dL (0.60-1.30); GLOMERULAR FILTR. RATE CALC > 60 mL/min (>60); GLUCOSE,RANDOM 102 mg/dL (70-110); POTASSIUM 3.9 mmol/L (3.5-5.1); SODIUM SERUM 142 mmol/L (136-145); UREA NITROGEN, BLOOD 8 mg/dL (7-18)
[2023-09-06 12:49] LABS: ALCOHOL, BLOOD (SERUM) 292 mg/dL (0-10)
[2023-09-06] MEDS ORDERED: HALOPERIDOL 5 MG TABLET PO PRN (15:15)
[2023-09-06] MEDS: LORazepam 2 MG TABLET PO PRN (15:55)
[2023-09-06 18:01] VITALS: BP 130/76; PULSE 88; RESP 18; TEMP 97.8
[2023-09-06] MEDS ORDERED: PNEUMOCOCCAL VACCINE POLYVALENT 0.5 ML SYRINGE [PPSV23] IM. ONE (20:30)
[2023-09-06 23:29] VITALS: BP 140/78; PULSE 72; RESP 18; TEMP 98.1
[2023-09-07] MEDS: ZOLPIDEM TARTRATE 10 MG TABLET PO PRN (02:05)
[2023-09-07] MEDS ORDERED: NICOTINE 14 MG/24 HOUR PATCH TD PRN ×2 (07:00)
[2023-09-07] MEDS ORDERED: ACETAMINOPHEN 325 MG TABLET PO PRN ×2 (07:00)
[2023-09-07] MEDS ORDERED: LOPERAMIDE HCL 2 MG CAPSULE PO PRN ×2 (07:00)
[2023-09-07] MEDS ORDERED: ONDANSETRON HCL 4 MG TABLET PO PRN ×2 (07:00)
[2023-09-07] MEDS ORDERED: MAG HYDROX/ALUMINUM HYD/SIMETH ES 30 ML SUSPENSION UDCUP PO PRN ×2 (07:00)
[2023-09-07] MEDS ORDERED: PETROLATUM,WHITE 28 GM JELLY TP PRN ×2 (07:00)
[2023-09-07] MEDS ORDERED: ALBUTEROL SULFATE HFA 90 MCG/PUFF 8 GM INHALER IH PRN ×2 (07:00)
[2023-09-07] MEDS ORDERED: CloNIDine HCL 0.1 MG TABLET PO PRN ×2 (07:00)
[2023-09-07] MEDS ORDERED: MAGNESIUM HYDROXIDE SUSPENSION 30 ML UDCUP PO PRN ×2 (07:00)
[2023-09-07] MEDS ORDERED: IBUPROFEN 400 MG TABLET PO PRN (07:00)
[2023-09-07] MEDS ORDERED: GuaiFENesin/D-METHORPHAN [SUGAR-FREE] 200-20MG/10 ML SYRUP UDCUP PO PRN ×2 (07:00)
[2023-09-07] MEDS ORDERED: DOCUSATE SODIUM 100 MG CAPSULE PO PRN ×2 (07:00)
[2023-09-07 08:32] VITALS: BP 156/98; PULSE 88; RESP 18; TEMP 97.3
[2023-09-07] MEDS: LISINOPRIL 10 MG TABLET PO SCH (08:32)
[2023-09-07] MEDS: IBUPROFEN 400 MG TABLET PO PRN (08:32)
[2023-09-07] MEDS ORDERED: LISINOPRIL 10 MG TABLET PO SCH (09:00)
[2023-09-07 09:32] VITALS: BP 141/91; PULSE 81; RESP 18; TEMP 98
[2023-09-07] MEDS ORDERED: VALB80CA PO (11:09)
[2023-09-07] MEDS ORDERED: BENZ2TAB84 PO (11:09)
[2023-09-07] MEDS ORDERED: TRAZ-283 PO (11:09)
[2023-09-07] MEDS ORDERED: LURA40TA4 PO (11:09)
[2023-09-07] MEDS ORDERED: PANT40TA54 PO (11:09)
[2023-09-07] MEDS ORDERED: SERT-439 PO (11:09)
[2023-09-07] MEDS ORDERED: NALT50TA6 PO (11:09)
[2023-09-07] MEDS: SERTRALINE HCL 50 MG TABLET PO SCH (11:20)
[2023-09-07] MEDS: LURASIDONE HCL 40 MG TABLET PO SCH (12:15)
[2023-09-07] MEDS: BENZTROPINE MESYLATE 2 MG TABLET PO SCH (18:07)
[2023-09-07 21:05] VITALS: BP 118/67; PULSE 78; RESP 18; TEMP 97.8
[2023-09-07] MEDS: TraZODone HCL 150 MG TABLET PO SCH (21:19)
[2023-09-08 09:10] LABS: BASOPHILS % (AUTO) 2.8 % (0.0-2.0); HEMATOCRIT 32.4 % (36-46); HEMOGLOBIN 10.4 g/dL (12.0-16.0); LYMPHOCYTES # (AUTO) 1.1 K/uL (1.0-4.8); LYMPHOCYTES % (AUTO) 20.1 % (22.0-44.0); MEAN CORPUSCULAR HEMOGLOBIN 28.3 pg (26.0-34.0); MEAN CORPUSCULAR HGB CONC 32.2 G/dL (31.0-37.0); MEAN CORPUSCULAR VOLUME 88 fL (80-100); MONOCYTES # (AUTO) 0.5 K/uL (0.1-1.0); MONOCYTES % (AUTO) 9.7 % (2.0-9.0); NEUTROPHILS # (AUTO) 3.5 K/uL (1.8-7.7); NEUTROPHILS % (AUTO) 63.4 % (40.0-70.0); PLATELET COUNT (AUTO) 450 K/uL (150-450); RED BLOOD CELL COUNT(AUTO) 3.69 MIL/uL (4.00-5.20); RED CELL DISTRIBUTION WIDTH 17.8 % (11.5-14.5); WHITE BLOOD COUNT (AUTO) 5.5 K/uL (4.5-11.0)
[2023-09-08 09:32] LABS: ALANINE AMINOTRANSFERASE 18 U/L (12-78); ALBUMIN 2.6 g/dL (3.4-5.0); ALKALINE PHOSPHATASE 123 U/L (46-116); ANION GAP 4 mmol/L (8-16); ASPARTATE AMINOTRANSFERASE 17 U/L (15-37); BILIRUBIN,TOTAL 0.9 mg/dL (0.1-1.0); CALCIUM, TOTAL 8.9 mg/dL (8.8-10.5); CARBON DIOXIDE 30 mmol/L (22-29); CHLORIDE 105 mmol/L (98-107); CHOL/HDL RATIO 2.1 (3.9-5.7); CHOLESTEROL 215 mg/dL (131-200); CREATININE 0.76 mg/dL (0.60-1.30); GLOMERULAR FILTR. RATE CALC > 60 mL/min (>60); GLUCOSE,RANDOM 110 mg/dL (70-110); HDL CHOLESTEROL 104 mg/dL (40-60); LDL CHOL (CALC.) 98 mg/dL (0-130); POTASSIUM 4.1 mmol/L (3.5-5.1); SODIUM SERUM 139 mmol/L (136-145); TOTAL PROTEIN, SERUM 6.3 g/dL (6.4-8.2); TRIGLYCERIDES 63 mg/dL (15-150); UREA NITROGEN, BLOOD 8 mg/dL (7-18)
[2023-09-08 11:18] VITALS: BP 131/88; PULSE 79; RESP 19; TEMP 97.9
[2023-09-08 21:29] VITALS: BP 106/70; PULSE 68; RESP 18; TEMP 98.4
[2023-09-08] MEDS: BENZTROPINE MESYLATE 1 MG TABLET PO SCH (21:32)
[2023-09-08 22:32] VITALS: RESP 18
[2023-09-08 22:49] VITALS: BP 102/63; PULSE 63; RESP 18; TEMP 98.7
[2023-09-09 10:20] VITALS: BP 99/59; PULSE 81; RESP 18; TEMP 97.8
[2023-09-09] MEDS ORDERED: GABA-1181 PO (11:56)
[2023-09-09] MEDS ORDERED: TRAZ-283 PO (13:29)
[2023-09-09] MEDS ORDERED: LURA40TA2 PO (13:29)
[2023-09-09] MEDS ORDERED: SERT-439 PO (13:29)
[2023-09-09] MEDS ORDERED: LISI-893 PO (13:29)
[2023-09-09] MEDS ORDERED: BENZ2TAB84 PO (13:29)
== END 2023-09-09 15:45 | disposition home or self-care (01) | DRG 750 ==
LOC: EMS 10:40 → 3EC 20:44 → 3EI 09-08 18:42
PROVIDERS: ADMIT Psychiatry & Neurology Psychiatry; ATTEND Psychiatry & Neurology Psychiatry
PROC: GZHZZZZ Group Psychotherapy (ICD-10-PCS; principal; 2023-09-07)
PROC: GZ56ZZZ Individual Psychotherapy, Supportive (ICD-10-PCS; 2023-09-07)
DX: F20.0 Paranoid schizophrenia (principal); F10.90 Alcohol use, unspecified, uncomplicated; F15.90 Other stimulant use, unspecified, uncomplicated; F32.A Depression, unspecified; G47.00 Insomnia, unspecified; I10 Essential (primary) hypertension; J45.909 Unspecified asthma, uncomplicated; Y90.8 Blood alcohol level of 240 mg/100 ml or more; Z79.899 Other long term (current) drug therapy; F41.9 Anxiety disorder, unspecified; Z20.822 Contact with and (suspected) exposure to COVID-19
CPT/HCPCS: 80048; 80053; 80061; 80307; 81001; 85025; 99285; G0480